=== PATIENT | male | born 1985 | race Caucasian/White ===

== ENCOUNTER 2018-11-29 23:29 | Inpatient (IN) | payer SELFPAY ==
[2018-11-29] MEDS ORDERED: LORazepam 2 MG/ML VIAL ONE (23:44)
[2018-11-29 23:53] LABS: Absolute Lymphocytes (CBC) 1.2 K/uL (0.7-4.9); Basophils % 0.8 % (0-1.3); Hematocrit 38.3 % (39.6-49.0); Lymphocytes % 28.7 % (15.3-44.8); MPV 10.9 fL (7.6-11.3); RBC Red Blood Cell Count 3.95 M/uL (4.33-5.43)
[2018-11-29 23:56] LABS: Protime INR 0.97
[2018-11-30 00:27] LABS: Alkaline Phosphatase 249 U/L (45-117); BUN Blood Urea Nitrogen 10 mg/dL (7-18); Bicarbonate 26 mmol/L (21-32); Bilirubin Direct 0.5 mg/dL (0-0.2); Glucose Level 105 mg/dL (74-106); Potassium 3.4 mmol/L (3.5-5.1); Protein, Total 8.2 g/dL (6.4-8.2); Sodium Level 137 mmol/L (136-145)
[2018-11-30 00:28] LABS: ALT/SGPT 700 U/L (12-78); AST/SGOT 878 U/L (15-37)
[2018-11-30] MEDS ORDERED: LORazepam 2 MG/ML VIAL ONE ×2 (00:37→04:08)
--- NOTE | 2018-11-30 01:23 | ER ---
Nurse's Notes [facility] Name: Bridger Garcia Age: 33 yrs Sex: Male : 1985 Arrival Date: 11/29/2018 Time: 23:30 Bed 2 Private MD: Diagnosis: Delirium due to known physiological condition;Alcohol abuse Presentation: 11/29 23:31 Presenting complaint: EMS states: PD on scene. pt girlfriend called stating pt was ak1 "having a seizure" pt A\\T\\OX3. pt admits to "using weed to sleep" to EMS. pt denies drug use to nurse during triage. EMS administered 100mL NS through 18g at the right forearm. Transition of care: patient was not received from another setting of care. Onset of symptoms was November 29, 2018. Risk Assessment: Do you want to hurt yourself or someone else? Patient reports no desire to harm self or others. Initial Sepsis Screen: Does the patient meet any 2 criteria? No. Patient's initial sepsis screen is negative. Does the patient have a suspected source of infection? No. Patient's initial sepsis screen is negative. Care prior to arrival: None. 23:31 Method Of Arrival: EMS: [facility] ak1 23:31 Acuity: BURTON 1 bb Triage Assessment: 23:33 General: Appears in no apparent distress. well groomed, Behavior is cooperative, ak1 anxious, restless. Pain: Complains of pain in jaw pain. EENT: No signs and/or symptoms were reported regarding the EENT system. Neuro: Level of Consciousness is awake, alert, obeys commands, Oriented to person, place, situation, Transit Survey Worker are equal bilaterally Moves all extremities. Full function Speech is normal, Facial symmetry appears normal, Pupils are dilated. Cardiovascular: Patient's skin is warm and dry. Rhythm is sinus tachycardia. Respiratory: Airway is patent Respiratory effort is even, unlabored. GI: No signs and/or symptoms were reported involving the gastrointestinal system. : No signs and/or symptoms were reported regarding the genitourinary system. Derm: No signs and/or symptoms reported regarding the dermatologic system. Musculoskeletal: No signs and/or symptoms reported regarding the musculoskeletal system. Historical: - Allergies: 23:33 No Known Allergies; ak1 - Home Meds: 23:33 None [Active]; ak1 - PMHx: 23:33 Hypertension; ak1 - PSHx: 23:33 None; ak1 - Immunization history:: Adult Immunizations unknown. - Social history:: Smoking status: Patient uses tobacco products, smokes two packs cigarettes per day. Patient/guardian denies using alcohol, street drugs. - Ebola Screening: : No symptoms or risks identified at this time. Screenin:38 Abuse screen: Denies threats or abuse. Denies injuries from another. Nutritional ak1 screening: No deficits noted. Tuberculosis screening: No symptoms or risk factors identified. Fall Risk IV access (20 points). Assessment: 23:37 Reassessment: Patient appears in no apparent distress at this time. No changes from ak1 previously documented assessment. Patient and/or family updated on plan of care and expected duration. Pain level reassessed. pt girlfriend at bedside. 23:38 Reassessment: EMS reported pt had been combative earlier in the night per the pt ak1 girlfriend. . 11/30 00:30 Reassessment: Patient appears in no apparent distress at this time. No changes from ak1 previously documented assessment. Patient and/or family updated on plan of care and expected duration. Pain level reassessed. 01:00 Reassessment: pt and girlfriend informed of pt need to be admitted and treated for ETOH ak1 withdrawal. 01:49 Reassessment: PT's girlfriend reports patient drinks half a liter of vodka per day jb4 sometime followed by beer. Girlfriend reports last drink was on Thursday. 02:05 Reassessment: Patient appears in no apparent distress at this time. Patient and/or jb4 family updated on plan of care and expected duration. Pain level reassessed. Pt is sitting up in bed with no s/s of pain or distress noted. respirations are even and unlabored, and symmetrical. 02:15 Reassessment: Pt admitted to ER Hold, see [facility] for further documentation. jb4 05:00 Reassessment: Dr. Wood and Dr. Vera at bedside to reassess patient. lp1 06:00 Reassessment: Returned from CT at this time. lp1 Vital Signs: 11/29 23:25 BP 174 / 109; Pulse 123; Resp 20; Temp 98.7(O); Pulse Ox 96% on R/A; Weight 79.38 kg ak1 (R); Height 6 ft. 0 in. (182.88 cm) (R); Pain 3/10; 23:37 BP 146 / 102; Pulse 110; Resp 18; Pulse Ox 95% on R/A; ak1 11/30 00:34 BP 144 / 101; Pulse 106; Resp 18; Pulse Ox 95% on R/A; ak1 01:15 BP 142 / 88; Pulse 108; Resp 22; Pulse Ox 95% on R/A; ak1 01:30 BP 136 / 93; Pulse 91; Pulse Ox 96% on R/A; ak1 02:00 BP 135 / 95; Pulse 96; Resp 24; Pulse Ox 98% on R/A; jb4 05:30 Pulse 108; Resp 20 A; Pulse Ox 98% on BVM; lp1 05:34 BP 129 / 82; Pulse 92; Resp 22; Pulse Ox 99% on BVM; lp1 05:40 BP 188 / 144; Pulse 135; Resp 18; Pulse Ox 100% on BVM; lp1 06:10 BP 145 / 101; Pulse 78; Resp 10; ak1 06:30 BP 141 / 96; Pulse 72; Resp 14; Temp 96.8(C); Pulse Ox 99% on ETT vent; ak1 07:00 BP 135 / 94; Pulse 68; Resp 14; Temp 95.9(C); Pulse Ox 95.9% on ETT vent; ak1 11/29 23:25 Body Mass Index 23.73 (79.38 kg, 182.88 cm) ak1 Gopi Coma Score: 11/29 23:33 Eye Response: spontaneous(4). Verbal Response: oriented(5). Motor Response: obeys ak1 commands(6). Total: 15. ED Course: 23:25 Arm band placed on Patient placed in an exam room, on a stretcher, on button cutter, ak1 on pulse oximetry, Patient notified of wait time. EKG completed in triage. Results shown to MD. 23:30 Patient arrived in ED. ak1 23:31 Inserted saline lock: 20 gauge in left forearm, using aseptic technique. Blood jb5 collected. 23:33 Triage completed. ak1 23:35 Seizure precautions initiated. cost recovery technician on. Pulse ox on. NIBP on. Door closed. ak1 23:35 Initial lab(s) drawn, by ED staff, sent to lab. EKG done, by ED staff. Maintain EMS IV. ak1 Dressing intact. Site clean \\T\\ dry. Gauge \\T\\ site: 18g right forearm. 23:41 Bebeto Vera MD is Attending Physician. gs 23:44 Acetaminophen Sent. jb5 23:44 Basic Metabolic Panel Sent. jb5 23:44 CBC with Diff Sent. jb5 23:44 ETOH Level Sent. jb5 23:44 Hepatic Function Sent. jb5 23:44 PT-INR Sent. jb5 23:44 Ptt, Activated Sent. jb5 23:44 Salicylate Sent. jb5 23:47 Cele Levi, MILAGROS is Primary Nurse. ak1 11/30 00:26 Notified ED physician of a critical lab result(s). ALT 700, AST 878. lp1 01:18 Tres Wood MD is Hospitalizing Provider. gs 01:37 No provider procedures requiring assistance completed. Patient admitted, IV remains in ak1 place. 05:30 20g IV to L FA and 18g IV to R FA pulled out while patient being combative. lp1 05:30 Inserted saline lock: 18 gauge in right upper arm, using aseptic technique. By Sonja Fortune RN. 05:37 Assisted provider with intubation using 8.0 mm ETT via oral route. ET tube secured at lp1 23cm at the teeth. Set up intubation tray. Intubated by Bebeto Vera MD Placement verified by CXR, CO2 detector w/ + color change, auscultating bilateral breath sounds. 05:45 NGT: inserted 18 Fr. other oral verified placement of air over stomach, verified return lp1 of gastric contents, Placement verified by X-ray, to intermittent suction. Returned gastric contents. 06:05 RT adjusted ET tube at this time per Dr. Vera; ET tube at 24 at the teeth. lp1 06:12 Vaca cath inserted, using sterile technique, 16 Fr., balloon inflated, to gravity lp1 drainage, other By Cele Levi RN Patient tolerated well. 06:25 Inserted saline lock: 18 gauge in left forearm, using aseptic technique. By Sonja Fortune RN. Administered Medications: 11/29 23:00 Drug: NS 0.9% 1000 ml {Note: EMS bolus continued .} Route: IV; Rate: 1 bolus; Site: ak1 right forearm; 23:48 Follow up: IV Status: Completed infusion; IV Intake: 1000ml ak1 23:47 Drug: Ativan 1 mg Route: IVP; Site: right forearm; ak1 23:48 Follow up: Response: No adverse reaction ak1 11/30 00:39 Drug: Ativan 2 mg Route: IVP; Site: right forearm; ak1 01:13 Follow up: Response: No adverse reaction ak1 05:04 Drug: Geodon 20 mg Route: IM; Site: left vastus lateralis; lp1 05:30 Follow up: Response: No adverse reaction; No change in condition lp1 05:30 Drug: Versed 4 mg Route: IVP; Site: right upper arm; lp1 05:40 Follow up: Response: No adverse reaction lp1 05:36 Drug: Etomidate 10 mg Route: IVP; Site: right upper arm; lp1 05:40 Follow up: Response: No adverse reaction lp1 05:36 Drug: Succinylcholine 120 mg Route: IVP; Site: right upper arm; lp1 05:40 Follow up: Response: Marked relief of symptoms lp1 05:40 Drug: Propofol 50 mg Route: IVP; Site: right upper arm; lp1 06:00 Follow up: Response: Marked relief of symptoms lp1 05:45 Drug: Propofol 5 mcg/kg/min Route: IV; Rate: calculated rate; Site: right upper arm; lp1 05:50 Follow up: Rate change 20 mcg/kg/min lp1 06:43 Follow up: Rate change 30 mcg/kg/min lp1 06:25 Drug: NS 0.9% 1000 ml Route: IV; Rate: 100 ml/hr; Site: right upper arm; lp1 06:25 Drug: Versed 2 mg Route: IVP; Site: left forearm; ak1 Intake: 11/29 23:48 IV: 1000ml; Total: 1000ml. ak1 Output: 11/30 06:15 Urine: 450ml (Vaca); Total: 450ml. lp1 Outcome: 01:22 Decision to Hospitalize by Provider. gs 01:37 Admitted to ER Hold. Please see [facility] for further documentation. ak1 01:37 Condition: improved 01:37 Instructed on the need for admit. 07:48 Patient left the ED. Signatures: Sonja Fortune RN RN bb Vandana Amador, MILAGROS RN ss Jalyn Copeland RN RN lp1 Cele Levi RN RN ak1 Cody Menchaca RN RN jb4 Chelsey Viramontes jb5 Bebeto Vera MD MD gs Corrections: (The following items were deleted from the chart) 01:15 00:30 Reassessment: pt and girlfriend informed of pt need to be admitted and treated ak1 for ETOH withdrawal. ak1 06:10 11/29 23:31 Acuity: BURTON 3 ak1 bb 11/30 06:47 05:00 Reassessment: Dr. Wood at bedside to reassess patient lp1 lp1
--- NOTE | 2018-11-30 01:23 | EDPHYS ---
Physician Documentation [facility] Name: Bridger Garcia Age: 33 yrs Sex: Male : 1985 Arrival Date: 11/29/2018 Time: 23:30 Bed 2 Private MD: ED Physician Bebeto Vera HPI: 11/30 01:41 This 33 yrs old Male presents to ER via EMS with complaints of Probable gs Seizure. 01:41 The patient presents after having a single isolated seizure. Character of seizure(s): gs Loss of consciousness: the patient did not lose consciousness, Incontinence: none, Apnea: the patient did not experience apnea. Seizure onset: just prior to arrival. Context: the seizure(s) was witnessed, by a friend. Seizure Hx: the patient has no previous seizure history, Cause: alcohol abuse history. Associated injury: The patient did not suffer any apparent associated injury. The patient has not experienced similar symptoms in the past. last drink last Thursday, pt is heavy drinker. Historical: - Allergies: 11/29 23:33 No Known Allergies; ak1 - Home Meds: 23:33 None [Active]; ak1 - PMHx: 23:33 Hypertension; ak1 - PSHx: 23:33 None; ak1 - Immunization history:: Adult Immunizations unknown. - Social history:: Smoking status: Patient uses tobacco products, smokes two packs cigarettes per day. Patient/guardian denies using alcohol, street drugs. - Ebola Screening: : No symptoms or risks identified at this time. ROS: 11/30 01:41 All other systems are negative. gs Exam: 01:41 Head/Face: Normocephalic, atraumatic. Eyes: Pupils equal round and reactive to light, gs extra-ocular motions intact. Lids and lashes normal. Conjunctiva and sclera are non-icteric and not injected. Cornea within normal limits. Periorbital areas with no swelling, redness, or edema. ENT: Nares patent. No nasal discharge, no septal abnormalities noted. Tympanic membranes are normal and external auditory canals are clear. Oropharynx with no redness, swelling, or masses, exudates, or evidence of obstruction, uvula midline. Mucous membranes moist. Neck: Trachea midline, no thyromegaly or masses palpated, and no cervical lymphadenopathy. Supple, full range of motion without nuchal rigidity, or vertebral point tenderness. No Meningismus. Chest/axilla: Normal chest wall appearance and motion. Nontender with no deformity. No lesions are appreciated. 01:41 Respiratory: Lungs have equal breath sounds bilaterally, clear to auscultation and percussion. No rales, rhonchi or wheezes noted. No increased work of breathing, no retractions or nasal flaring. Abdomen/GI: Soft, non-tender, with normal bowel sounds. No distension or tympany. No guarding or rebound. No evidence of tenderness throughout. Back: No spinal tenderness. No costovertebral tenderness. Full range of motion. Skin: Warm, dry with normal turgor. Normal color with no rashes, no lesions, and no evidence of cellulitis. MS/ Extremity: Pulses equal, no cyanosis. Neurovascular intact. Full, normal range of motion. Neuro: Awake and alert, GCS 15, oriented to person, place, time, and situation. Cranial nerves II-XII grossly intact. Motor strength 5/5 in all extremities. Sensory grossly intact. Cerebellar exam normal. Normal gait. 01:41 Constitutional: The patient appears alert, awake. 01:41 Cardiovascular: Rate: tachycardic, Rhythm: regular, Pulses: no pulse deficits are appreciated. 01:41 ECG was reviewed by the Attending Physician. Vital Signs: 11/29 23:25 BP 174 / 109; Pulse 123; Resp 20; Temp 98.7(O); Pulse Ox 96% on R/A; Weight 79.38 kg ak1 (R); Height 6 ft. 0 in. (182.88 cm) (R); Pain 3/10; 23:37 BP 146 / 102; Pulse 110; Resp 18; Pulse Ox 95% on R/A; ak1 11/30 00:34 BP 144 / 101; Pulse 106; Resp 18; Pulse Ox 95% on R/A; ak1 01:15 BP 142 / 88; Pulse 108; Resp 22; Pulse Ox 95% on R/A; ak1 01:30 BP 136 / 93; Pulse 91; Pulse Ox 96% on R/A; ak1 02:00 BP 135 / 95; Pulse 96; Resp 24; Pulse Ox 98% on R/A; jb4 05:30 Pulse 108; Resp 20 A; Pulse Ox 98% on BVM; lp1 05:34 BP 129 / 82; Pulse 92; Resp 22; Pulse Ox 99% on BVM; lp1 05:40 BP 188 / 144; Pulse 135; Resp 18; Pulse Ox 100% on BVM; lp1 06:10 BP 145 / 101; Pulse 78; Resp 10; ak1 06:30 BP 141 / 96; Pulse 72; Resp 14; Temp 96.8(C); Pulse Ox 99% on ETT vent; ak1 07:00 BP 135 / 94; Pulse 68; Resp 14; Temp 95.9(C); Pulse Ox 95.9% on ETT vent; ak1 11/29 23:25 Body Mass Index 23.73 (79.38 kg, 182.88 cm) ak1 Gopi Coma Score: 11/29 23:33 Eye Response: spontaneous(4). Verbal Response: oriented(5). Motor Response: obeys ak1 commands(6). Total: 15. Procedures: 11/30 05:41 Intubation: Ventilated with 100% NRB prior to procedure. O2 saturation prior to gs procedure was 100 %. Intubated orally using # 4 Cat blade with 8.0 mm ETT. was successful on first attempt. Ventilated with Ambu bag. Tube secured with ETT hussein Placement verified by CXR, CO2 detector with (+) color change, auscultating bilateral breath sounds, O2 saturation after procedure was 100 %. Patient tolerated well, pt decompensated very agitated danger to self others unable to maintain airway with sedation thus required ett. MDM: 00:29 Patient medically screened. 01:41 Differential diagnosis: cardiac arrhythmia, seizure, dt, etoh withdrawl. Data reviewed: vital signs, nurses notes. Counseling: I had a detailed discussion with the patient and/or guardian regarding: the historical points, exam findings, and any diagnostic results supporting the discharge/admit diagnosis, the need for further work-up and treatment in the hospital. Response to treatment: the patient's symptoms have markedly improved after treatment, the patient's condition has returned to base line. 11/29 23:36 Order name: Acetaminophen; Complete Time: 00:30 ak1 11/29 23:36 Order name: Basic Metabolic Panel; Complete Time: 00:30 ak1 11/29 23:36 Order name: CBC with Diff; Complete Time: 00:30 ak1 11/29 23:36 Order name: ETOH Level; Complete Time: 00:30 ak1 11/29 23:36 Order name: Hepatic Function; Complete Time: 00:30 ak1 11/29 23:36 Order name: PT-INR; Complete Time: 00:30 ak1 11/29 23:36 Order name: Ptt, Activated; Complete Time: 00:30 ak1 11/29 23:36 Order name: Salicylate; Complete Time: 00:30 ak1 11/29 23:36 Order name: Urine Drug Screen; Complete Time: 01:52 ak1 11/30 00:31 Order name: Lipase; Complete Time: 01:11 gs 11/30 00:33 Order name: Hepatitis Panel 11/30 01:13 Order name: Urine Dipstick--Ancillary (enter results); Complete Time: 07:28 [facility] 11/30 02:12 Order name: CBC with Automated Diff EDMS 11/30 02:12 Order name: CBC with Automated Diff EDMS 11/30 02:12 Order name: Comprehensive Metabolic Panel EDMS 11/30 02:12 Order name: Comprehensive Metabolic Panel EDMS 11/30 02:12 Order name: Protime (+INR) EDMS 11/30 02:12 Order name: Protime (+INR) EDMS 11/30 02:12 Order name: PTT, Activated Partial Thromb EDMS 11/30 02:12 Order name: PTT, Activated Partial Thromb EDMS 11/30 02:14 Order name: CBC with Automated Diff EDMS 11/30 02:14 Order name: Comprehensive Metabolic Panel EDMS 11/30 02:14 Order name: Lipase EDMS 11/30 02:14 Order name: Protime (+INR) EDMS 11/30 02:14 Order name: PTT, Activated Partial Thromb EDMS 11/30 05:41 Order name: Chest Single View XRAY 11/30 05:41 Order name: CT Head Brain wo Cont 11/30 06:32 Order name: RAD; Complete Time: 07:28 EDMS 11/29 23:36 Order name: EKG; Complete Time: 23:37 ak1 11/29 23:36 Order name: EKG - Nurse/Tech; Complete Time: 23:36 ak1 11/29 23:36 Order name: IV Saline Lock; Complete Time: 23:36 ar1 11/29 23:36 Order name: Labs collected and sent; Complete Time: 23:44 ak1 11/29 23:36 Order name: Urine Dipstick-Ancillary (obtain specimen); Complete Time: 01:13 ak1 11/30 02:12 Order name: CONS Pharmacy Consult EDMS 11/30 02:12 Order name: Regular EDMS EC:41 Rate is 112 beats/min. Rhythm is regular. [place] interval is normal. QRS interval is gs prolonged. T waves are Normal. No ST changes noted. Clinical impression: Abnormal EKG without significant change. Interpreted by me. Administered Medications: 11/29 23:00 Drug: NS 0.9% 1000 ml {Note: EMS bolus continued .} Route: IV; Rate: 1 bolus; Site: [facility] right forearm; 23:48 Follow up: IV Status: Completed infusion; IV Intake: 1000ml ak1 23:47 Drug: Ativan 1 mg Route: IVP; Site: right forearm; ak1 23:48 Follow up: Response: No adverse reaction ak1 11/30 00:39 Drug: Ativan 2 mg Route: IVP; Site: right forearm; ak1 01:13 Follow up: Response: No adverse reaction ak1 05:04 Drug: Geodon 20 mg Route: IM; Site: left vastus lateralis; lp1 05:30 Follow up: Response: No adverse reaction; No change in condition lp1 05:30 Drug: Versed 4 mg Route: IVP; Site: right upper arm; lp1 05:40 Follow up: Response: No adverse reaction lp1 05:36 Drug: Etomidate 10 mg Route: IVP; Site: right upper arm; lp1 05:40 Follow up: Response: No adverse reaction lp1 05:36 Drug: Succinylcholine 120 mg Route: IVP; Site: right upper arm; lp1 05:40 Follow up: Response: Marked relief of symptoms lp1 05:40 Drug: Propofol 50 mg Route: IVP; Site: right upper arm; lp1 06:00 Follow up: Response: Marked relief of symptoms lp1 05:45 Drug: Propofol 5 mcg/kg/min Route: IV; Rate: calculated rate; Site: right upper arm; lp1 05:50 Follow up: Rate change 20 mcg/kg/min lp1 06:43 Follow up: Rate change 30 mcg/kg/min lp1 06:25 Drug: NS 0.9% 1000 ml Route: IV; Rate: 100 ml/hr; Site: right upper arm; lp1 06:25 Drug: Versed 2 mg Route: IVP; Site: left forearm; ak1 Disposition: 11/30/18 01:22 Hospitalization ordered by Tres Wood for Inpatient Admission. Preliminary diagnosis are Delirium due to known physiological condition, Alcohol abuse. - Bed requested for Intensive Care Unit. - Status is Inpatient Admission. ss - Condition is Stable. - Problem is new. - Symptoms have improved. UTI on Admission? No Signatures: Dispatcher [employer] EDMS Delmar Randolph MD MD cha Smirch, Shelby, RN RN ss Jalyn Copeland RN RN lp1 Cele Levi RN RN ak1 Effie Posadas RN RN cg Bebeto Vera MD MD gs Corrections: (The following items were deleted from the chart) 05:49 01:22 Hospitalization Ordered by Tres Wood MD for Inpatient Admission. Preliminary cg diagnosis is Delirium due to known physiological condition; Alcohol abuse. Bed requested for Telemetry/MedSurg (observation). Status is Inpatient Admission. Condition is Stable. Problem is new. Symptoms have improved. UTI on Admission? No. 07:48 05:49 11/30/2018 01:22 Hospitalization Ordered by Tres Wood MD for Inpatient ss Admission. Preliminary diagnosis is Delirium due to known physiological condition; Alcohol abuse. Bed requested for Intensive Care Unit. Status is Inpatient Admission. Condition is Stable. Problem is new. Symptoms have improved. UTI on Admission? No.
[2018-11-30 01:32] LABS: Barbiturates NEGATIVE (NEGATIVE); Benzodiazepines NEGATIVE (NEGATIVE); Cocaine NEGATIVE (NEGATIVE); METHAMPHETAM NEGATIVE (NEGATIVE); Methadone NEGATIVE (NEGATIVE); Opiates NEGATIVE (NEGATIVE); Phencyclidine NEGATIVE (NEGATIVE); THC Cannibis NEGATIVE (NEGATIVE)
[2018-11-30] MEDS ORDERED: MORPHINE 4 MG/ML SYR IV PRN (02:05)
[2018-11-30] MEDS ORDERED: chlordiazePOXIDE HCl 5 MG CAP PO PRN (02:05)
[2018-11-30] MEDS ORDERED: ONDANSETRON 4 MG/2 ML VIAL IV PRN (02:05)
[2018-11-30] MEDS ORDERED: levETIRAcetam 500 MG in NA CHLORIDE 0.9% 100 ML IV SCH (02:15)
[2018-11-30] MEDS ORDERED: NA CHLORIDE 0.9% 100 ML IV ONE (02:19)
[2018-11-30] MEDS ORDERED: LEVETIRACETAM 500 MG/5 ML VIAL IV ONE ×2 (02:19→20:22)
[2018-11-30 02:41] LABS: Urine Blood NEGATIVE (NEG); Urine Glucose NEGATIVE (NEG); Urine Protein 1+ (NEG)
[2018-11-30] MEDS: NA CHLORIDE 0.9% 1,000 ML IV SCH ×3 (03:00→22:20)
[2018-11-30] MEDS ORDERED: NA CHLORIDE 0.9% 1,000 ML ONE ×2 (03:01→05:23)
[2018-11-30] MEDS ORDERED: HYDROMORPHONE HCL 0.5 MG/0.5 ML INJ IV ONE ×2 (03:07→04:00)
[2018-11-30] MEDS ORDERED: HYDROMORPHONE HCL 0.5 MG/0.5 ML INJ ONE ×2 (03:20→04:03)
[2018-11-30] MEDS: LORazepam 2 MG/ML VIAL IV PRN ×4 (04:13→23:00)
[2018-11-30] MEDS ORDERED: HYDROMORPHONE HCL 1 MG/ML INJ ONE (04:19)
[2018-11-30] MEDS ORDERED: HYDROMORPHONE HCL 1 MG/ML INJ IV ONE (04:20)
[2018-11-30] MEDS ORDERED: LORazepam 2 MG/ML VIAL IV ONE (04:34)
[2018-11-30] MEDS ORDERED: ZIPRASIDONE MESYLA 20 MG/VIAL IM ONE (05:09)
[2018-11-30] MEDS ORDERED: WATER FOR INJ,STERILE 10 ML ONE (05:10)
[2018-11-30] MEDS ORDERED: METOPROLOL TARTRATE 5 MG/5 ML INJ IV ONE (05:10)
[2018-11-30] MEDS ORDERED: MIDAZOLAM HCL 2 MG/2 ML INJ ONE ×2 (05:23→05:43)
[2018-11-30] MEDS ORDERED: RSI MEDICATION KIT IV ONE (05:23)
[2018-11-30] MEDS ORDERED: PROPOFOL 1,000 MG/100 ML VIAL IV ONE ×2 (05:23→11:00)
[2018-11-30] MEDS ORDERED: NA CHLORIDE 0.9% 50 ML IV ONE (05:44)
--- NOTE | 2018-11-30 06:11 | EKG ---
Test Date: 2018-11-29 Test Time: 23:26:43 Reach Lift Truck Driver: MICHAEL MEASUREMENT RESULTS: Intervals: Rate: 112 VT: 164 QRSD: 102 QT: 342 QTc: 466 Regan: P: 48 VT: 164 QRS: 69 T: 23 INTERPRETIVE STATEMENTS: Sinus tachycardia Incomplete right bundle branch block Septal infarct, age undetermined Abnormal ECG No previous ECG available for comparison Electronically Signed On 11-30-18 06:10:47 CDT by Demar Santos
--- NOTE | 2018-11-30 06:31 | RAD REPORT ---
EXAM DESCRIPTION: RAD - Chest Single View - 11/30/2018 5:56 am CLINICAL HISTORY: POST ETT Chest pain. COMPARISON: <Comparisons> FINDINGS: Portable technique limits examination quality. The lungs are grossly clear. The heart is normal in size. ET tube tip is above the porfirio.Enteric tub e descends in the stomach. IMPRESSION: No acute intrathoracic process suspected.
[2018-11-30] MEDS ORDERED: MIDAZOLAM HCL IV PRN (07:12)
[2018-11-30] MEDS ORDERED: NA CHLORIDE 0.9% IV PRN (07:12)
[2018-11-30] MEDS ORDERED: INFLUENZA VACCINE (for 3y+) 0.5 ML DOSE IMVAC ONE (08:00)
[2018-11-30 08:22] LABS: Absolute Lymphocytes (CBC) 0.9 K/uL (0.7-4.9); Basophils % 0.6 % (0-1.3); Lymphocytes % 27.7 % (15.3-44.8); MPV 9.8 fL (7.6-11.3); RBC Red Blood Cell Count 4.04 M/uL (4.33-5.43)
[2018-11-30 08:37] LABS: Protime INR 0.99
--- NOTE | 2018-11-30 08:51 | P.HP ---
Certification for Inpatient Patient admitted to: Inpatient With expected LOS: >2 Midnights Patient will require the following post-hospital care: Home Health Services Practitioner: I am a practitioner with admitting privileges, knowledge of patient current condition, hospital course, and medical plan of care. Services: Services provided to patient in accordance with Admission requirements found in Title 42 Section 412.3 of the Code of Federal Regulations Patient History Date of Service: 11/30/18 Reason for admission: delirium tremens History of Present Illness: Patient is a 33-year-old gentleman who comes into the hospital going through [facility]. Patient drinks about a half of 1 L of vodka every day. Patient had gone out of town to [place]. Over the last couple of days he has had no alcohol. He had been feeling poorly during the trip and had a few episodes of nausea and vomiting as well. Patient was seen in the ER and admitted to the hospital for further workup. Patient started becoming more obtunded in the ER. Decision was made to intubate and sedate as patient has high risk of aspiration and fall. patient became very combative while in the emergency room. After giving IV Versed patient finally relaxed and had to be intubated. Patient had a CT of the head which was negative. Patient will be admitted for further evaluation. Allergies No Known Allergies Allergy (Unverified 11/30/18 01:31) Home Medications: NK [No Home Meds] 11/30/18 - Past Medical/Surgical History Diabetic: No -: Hypertension Past Surgical History: Patient denies surgical history - Family History Father Family History: Reviewed- Non-Contributory - Social History Smoking Status: Current every day smoker Alcohol use: Yes CD- Drugs: No Caffeine use: Yes Place of Residence: Home Review of Systems 10-point ROS is otherwise unremarkable Physical Examination - Vital Signs Temperature: 95.9 F Blood Pressure: 135/94 Pulse: 68 Respirations: 14 Pulse Ox (%): 95 - Physical Exam General: Confused, Delirious, Unresponsive HEENT: Atraumatic, PERRLA, Mucous membr. moist/pink, EOMI, Sclerae nonicteric Neck: Supple, 2+ carotid pulse no bruit, No LAD, Without JVD or thyroid abnormality Respiratory: Clear to auscultation bilaterally, Normal air movement Cardiovascular: Regular rate/rhythm, Normal S1 S2, No murmurs Gastrointestinal: Normal bowel sounds, Soft and benign, Non-distended, Tenderness Musculoskeletal: No clubbing, No swelling, No tenderness Integumentary: No rashes Neurological: Normal gait, Normal speech, Normal strength at 5/5 x4 extr, Normal tone, Normal affect Lymphatics: No axilla or inguinal lymphadenopathy Urinary: Dialysis catheter External genitalia: No edema Rectal: Normal - Studies Laboratory Data (last 24 hrs) 11/30/18 00:00: Lipase 407 H 11/29/18 23:30: PT 11.5, INR 0.97, APTT 31.3 11/29/18 23:30: WBC 4.3, Hgb 14.1, Hct 38.3 L, Plt Count 308 11/29/18 23:30: Sodium 137, Potassium 3.4 L, BUN 10, Creatinine 0.94, Glucose 105, Total Bilirubin 1.0, AST 878 H*, ALT 700 H*, Alkaline Phosphatase 249 H Assessment & Plan - Problems (Diagnosis) (1) Respiratory failure Current Visit: Yes Status: Acute (2) Delirium tremens Current Visit: Yes Status: Acute (3) AMS (altered mental status) Current Visit: Yes Status: Acute - Plan 1. Vent management/ IV hydration 2. Antibiotic 3. IV sedation 4. pain control 5. GI DVT prophylaxis 6. Continue monitoring labs closely while intubated 7. Monitor chest x-ray daily Discharge Plan: Home Plan to discharge in: 24 Hours - Advance Directives Does patient have a Living Will: No Does patient have a Durable POA for Healthcare: No - Code Status/Comfort Care Code Status Assessed: Yes Code Status: Full Code Critical Care: No Time Spent Managing PTS Care (In Minutes): 110
[2018-11-30 09:08] LABS: ALT/SGPT 673 U/L (12-78); Albumin 3.7 g/dL (3.4-5.0); Alkaline Phosphatase 211 U/L (45-117); BUN Blood Urea Nitrogen 8 mg/dL (7-18); Bicarbonate 28 mmol/L (21-32); Bilirubin Total 1.2 mg/dL (0.2-1.0); Glucose Level 86 mg/dL (74-106); Lipase 133 U/L (73-393); Protein, Total 7.4 g/dL (6.4-8.2); Sodium Level 142 mmol/L (136-145)
[2018-11-30 09:14] LABS: AST/SGOT 758 U/L (15-37)
[2018-11-30] MEDS: levETIRAcetam 500 MG in NA CHLORIDE 0.9% 100 ML IV SCH ×2 (10:31→20:24)
[2018-11-30] MEDS: FOLIC ACID 1 MG, MULTIVITAMINS INJ 10 ML, THIAMINE HCL 100 MG in NA CHLORIDE 0.9% 1,000 ML IV SCH (10:31)
[2018-11-30] MEDS: ENOXAPARIN 40 MG/0.4 ML SQ SCH (10:32)
[2018-11-30] MEDS: chlordiazePOXIDE HCl 5 MG CAP PO SCH ×2 (10:32→14:00)
[2018-11-30 11:28] LABS: Absolute Lymphocytes (CBC) 1.3 K/uL (0.7-4.9); Basophils % 0.9 % (0-1.3); Hematocrit 39.7 % (39.6-49.0); Lymphocytes % 35.6 % (15.3-44.8); MPV 9.9 fL (7.6-11.3); RBC Red Blood Cell Count 4.01 M/uL (4.33-5.43)
[2018-11-30 12:19] LABS: ALT/SGPT 679 U/L (12-78); AST/SGOT 722 U/L (15-37); Albumin 3.6 g/dL (3.4-5.0); Alkaline Phosphatase 212 U/L (45-117); BUN Blood Urea Nitrogen 8 mg/dL (7-18); Bicarbonate 27 mmol/L (21-32); Bilirubin Total 1.3 mg/dL (0.2-1.0); Folic Acid, (Folate) > 20.0 ng/mL (3.1-17.5); Glucose Level 83 mg/dL (74-106); Lipase 129 U/L (73-393); Phosphorus 3.8 mg/dL (2.5-4.9); Potassium 3.3 mmol/L (3.5-5.1); Protein, Total 7.2 g/dL (6.4-8.2); Sodium Level 144 mmol/L (136-145)
[2018-11-30 13:00] LABS: Blood Morphology Comment NOT SEEN (NOT SEEN); Platelet Estimate ADEQ; Platelets, Giant FEW
--- NOTE | 2018-11-30 14:14 | RAD REPORT ---
EXAM DESCRIPTION: CT Head Without Intravenous Contrast CLINICAL HISTORY: The patient is 33 years old and is Male; CONFUSED TECHNIQUE: Axial computed tomography images of the head/brain without intravenous contrast. Sagitt al and coronal reformatted images were created and reviewed. This CT exam was performed using one o r more of the following dose reduction techniques: automated exposure control, adjustment of the mA and/or kV according to patient size, and/or use of iterative reconstruction technique. COMPARISON: No relevant prior studies available. FINDINGS: BRAIN: Unremarkable. The vanegas-white matter differentiation is preserved . No hemorrhag e. No significant white matter disease. No edema. No extra-axial fluid collections. VENTRICLES: Unremarkable. No ventriculomegaly. BONES/JOINTS: No acute fracture. SOFT TISSUES: Unremarkable. SINUSES: Unremarkable as visualized. No acute sinusitis. MASTOID AIR CELLS: Unremarkable as visualized. No mastoid effusion. ORBITS: Unremarkable as visualized. IMPRESSION: No acute intracranial findings. Electronically signed by: Lisa Duong MD 11/30/2018 6:26 AM CDT Due to temporary technical issues with the PACS/Fluency reporting system, reports are being signed by the in house radiologist as a courtesy to ensure prompt reporting. The interpreting radiologist is f ully responsible for the content of the report.
[2018-11-30] MEDS ORDERED: FENTANYL CITR 100 MCG/2 ML IV PRN (15:11)
[2018-11-30] MEDS ORDERED: MIDAZOLAM HCL 2 MG/2 ML INJ IV PRN (15:11)
[2018-11-30] MEDS: PROPOFOL 1,000 MG/100 ML VIAL IV PRN ×3 (15:14→23:10)
[2018-11-30] MEDS ORDERED: POTASSIUM 25 MEQ EFFERV TAB FT ONE (16:00)
[2018-11-30] MEDS: chlordiazePOXIDE HCl 25 MG CAP FT SCH ×2 (16:12→20:20)
[2018-11-30] MEDS: HALOPERIDOL LACT 5 MG/ML INJ IV PRN ×2 (16:13→23:19)
[2018-11-30] MEDS: MIDAZOLAM HCL 100 MG in NA CHLORIDE 0.9% 80 ML IV PRN (20:13)
[2018-11-30] MEDS ORDERED: NA CHLORIDE 0.9% 100 ML ONE (20:22)
[2018-12-01] MEDS: LORazepam 2 MG/ML VIAL IV PRN ×6 (03:04→21:40)
[2018-12-01] MEDS: PROPOFOL 1,000 MG/100 ML VIAL IV PRN ×5 (03:04→22:49)
[2018-12-01 05:57] LABS: Absolute Lymphocytes (CBC) 1.1 K/uL (0.7-4.9); Hematocrit 35.8 % (39.6-49.0); Lymphocytes % 24.5 % (15.3-44.8); MPV 9.8 fL (7.6-11.3); RBC Red Blood Cell Count 3.61 M/uL (4.33-5.43)
[2018-12-01 06:02] LABS: Albumin 3.2 g/dL (3.4-5.0); Alkaline Phosphatase 182 U/L (45-117); BUN Blood Urea Nitrogen 10 mg/dL (7-18); Bicarbonate 26 mmol/L (21-32); Bilirubin Total 1.4 mg/dL (0.2-1.0); Glucose Level 75 mg/dL (74-106); Magnesium 1.9 mg/dL (1.8-2.4); Phosphorus 3.5 mg/dL (2.5-4.9); Potassium 3.2 mmol/L (3.5-5.1); Protein, Total 6.6 g/dL (6.4-8.2); Sodium Level 142 mmol/L (136-145)
[2018-12-01 06:06] LABS: ALT/SGPT 634 U/L (12-78); AST/SGOT 543 U/L (15-37)
[2018-12-01] MEDS ORDERED: POTASSIUM 25 MEQ EFFERV TAB FT ONE (06:10)
--- NOTE | 2018-12-01 06:44 | RAD REPORT ---
EXAM DESCRIPTION: RAD - Chest Single View - 12/01/2018 6:18 am CLINICAL HISTORY: r/o aspiration Chest pain. COMPARISON: Chest Single View dated 11/30/2018 FINDINGS: Portable technique limits examination quality. The lungs are grossly clear. The heart is normal in size. ET tube tip is above the porfirio. Enteric tu be descends with its tip in the stomach.
[2018-12-01 07:14] LABS: Protime INR 0.98
[2018-12-01] MEDS: NA CHLORIDE 0.9% 1,000 ML IV SCH ×2 (09:00→20:10)
[2018-12-01] MEDS: levETIRAcetam 500 MG in NA CHLORIDE 0.9% 100 ML IV SCH ×2 (09:01→20:09)
[2018-12-01] MEDS: FOLIC ACID 1 MG, MULTIVITAMINS INJ 10 ML, THIAMINE HCL 100 MG in NA CHLORIDE 0.9% 1,000 ML IV SCH (09:02)
[2018-12-01] MEDS: chlordiazePOXIDE HCl 25 MG CAP FT SCH ×3 (09:06→20:10)
[2018-12-01] MEDS: ENOXAPARIN 40 MG/0.4 ML SQ SCH (09:07)
[2018-12-01] MEDS: FENTANYL CITR 100 MCG/2 ML IV PRN ×4 (09:20→21:50)
[2018-12-01] MEDS: MIDAZOLAM HCL 100 MG in NA CHLORIDE 0.9% 80 ML IV PRN ×2 (12:39→20:10)
--- NOTE | 2018-12-01 15:29 | P.PN ---
Subjective Date of Service: 12/01/18 Chief Complaint: delirium tremens Patient seen and examined at bedside. No family at bedside. Chart reviewed and case discussed with nursing staff. Patient currently continues to be intubated and sedated. Unable to be weaned off sedation at this time due to agitation. Review of Systems 10-point ROS is otherwise unremarkable Physical Examination - Vital Signs Temperature: 98.6 F Blood Pressure: 125/79 Pulse: 66 Respirations: 14 Pulse Ox (%): 99 - Physical Exam General: Other (Intubated and sedated; seems to get agitated even with sedation) HEENT: Atraumatic, PERRLA, EOMI Neck: Supple, JVD not distended Respiratory: Other (Intubated and sedated) Gastrointestinal: Normal bowel sounds, No tenderness Musculoskeletal: No tenderness Assessment And Plan - Plan 1. Continue Vent management/ IV hydration 2. Continue IV Antibiotic 3. Continue IV sedation -patient gets agitated even with trial of weaning down sedation at this time. 4. pain control 5. GI DVT prophylaxis 6. Continue monitoring labs closely while intubated 7. Monitor chest x-ray daily
[2018-12-01] MEDS ORDERED: ETOMIDATE 20 MG/10 ML VIAL IV ONE (18:47)
[2018-12-01] MEDS ORDERED: SUCCINYLCHOLINE 20 MG/ML (10 ML) IV ONE (18:47)
[2018-12-01] MEDS ORDERED: POTASSIUM 25 MEQ EFFERV TAB PO ONE (19:24)
[2018-12-02] MEDS: HALOPERIDOL LACT 5 MG/ML INJ IV PRN (01:04)
[2018-12-02] MEDS: LORazepam 2 MG/ML VIAL IV PRN ×4 (01:04→22:39)
[2018-12-02] MEDS ORDERED: HYDROMORPHONE HCL 1 MG/ML INJ ONE (01:56)
[2018-12-02] MEDS: FENTANYL CITR 100 MCG/2 ML IV PRN (01:58)
[2018-12-02] MEDS ORDERED: HYDROMORPHONE HCL 1 MG/ML INJ IV ONE (02:36)
[2018-12-02] MEDS: NA CHLORIDE 0.9% 1,000 ML IV SCH ×2 (05:00→15:00)
[2018-12-02] MEDS: chlordiazePOXIDE HCl 25 MG CAP FT SCH ×4 (05:46→22:39)
[2018-12-02 05:49] LABS: BUN Blood Urea Nitrogen 5 mg/dL (7-18); Bicarbonate 25 mmol/L (21-32); Glucose Level 69 mg/dL (74-106); Magnesium 1.9 mg/dL (1.8-2.4); Phosphorus 3.1 mg/dL (2.5-4.9); Potassium 3.3 mmol/L (3.5-5.1); Sodium Level 139 mmol/L (136-145)
--- NOTE | 2018-12-02 10:22 | RAD REPORT ---
EXAM DESCRIPTION: RAD - Hand Right 3 View - 12/02/2018 10:10 am CLINICAL HISTORY: Right hand pain, soft tissue swelling, unknown injury COMPARISON: None. FINDINGS: No fracture is identified. There is no dislocation or periosteal reaction noted. Prominen t soft tissue over the dorsum of the hand. No air, foreign body or calcification in the soft tissues. IMPRESSION: Right hand soft tissue swelling without air, foreign body or abnormal calcification. No acute bone or joint finding.
[2018-12-02] MEDS: levETIRAcetam 500 MG in NA CHLORIDE 0.9% 100 ML IV SCH ×2 (10:50→21:52)
[2018-12-02] MEDS: FOLIC ACID 1 MG, MULTIVITAMINS INJ 10 ML, THIAMINE HCL 100 MG in NA CHLORIDE 0.9% 1,000 ML IV SCH (10:50)
[2018-12-02] MEDS: ENOXAPARIN 40 MG/0.4 ML SQ SCH (10:51)
[2018-12-02] MEDS ORDERED: IBUPROFEN 400 MG TAB PO PRN (13:39)
[2018-12-02] MEDS ORDERED: LORazepam 2 MG/ML VIAL IV ONE (16:00)
[2018-12-02] MEDS: NICOTINE 21 MG/PAT TD SCH (16:55)
--- NOTE | 2018-12-02 17:36 | P.PN ---
Subjective Date of Service: 12/02/18 Chief Complaint: delirium tremens Subjective: Improving Patient seen and examined at bedside. No family at bedside. Chart reviewed and case discussed with nursing staff. Patient successfully extubated today Doing well post extubation, tolerating oral diet Review of Systems 10-point ROS is otherwise unremarkable Physical Examination - Vital Signs Temperature: 100.8 F Blood Pressure: 138/87 Pulse: 109 Respirations: 22 Pulse Ox (%): 96 - Physical Exam General: Alert, In no apparent distress HEENT: Atraumatic, PERRLA, EOMI Neck: Supple, JVD not distended Respiratory: Clear to auscultation bilaterally, Normal air movement Cardiovascular: Regular rate/rhythm, Normal S1 S2 Gastrointestinal: Normal bowel sounds, No tenderness Musculoskeletal: No tenderness Integumentary: No rashes Neurological: Normal speech, Normal tone, Normal affect Lymphatics: No axilla or inguinal lymphadenopathy Assessment And Plan - Plan 1. Extubated, continue to monitor vital signs in the ICU. 2. Continue IV Antibiotic 3. Continue alcohol withdrawal precautions/medication 4. pain control 5. GI DVT prophylaxis Disposition: Continue to monitor in ICU overnight, stable, can transfer to the floor. Continue to monitor for DTs and alcohol withdrawal symptoms.
[2018-12-02] MEDS ORDERED: POTASSIUM 25 MEQ EFFERV TAB PO ONE (18:00)
[2018-12-03 02:47] LABS: HBsAG Nonreactive (Nonreactive)
[2018-12-03 05:21] LABS: Absolute Lymphocytes (CBC) 1.4 K/uL (0.7-4.9); Basophils % 0.5 % (0-1.3); Hematocrit 39.5 % (39.6-49.0); Lymphocytes % 22.1 % (15.3-44.8)
[2018-12-03 05:44] VITALS: BMI 22.6
[2018-12-03 05:44] LABS: Albumin 3.4 g/dL (3.4-5.0); Alkaline Phosphatase 282 U/L (45-117); BUN Blood Urea Nitrogen 7 mg/dL (7-18); Bicarbonate 28 mmol/L (21-32); Bilirubin Total 1.7 mg/dL (0.2-1.0); Glucose Level 121 mg/dL (74-106); Potassium 3.6 mmol/L (3.5-5.1); Protein, Total 7.6 g/dL (6.4-8.2); Sodium Level 140 mmol/L (136-145)
[2018-12-03 05:46] LABS: ALT/SGPT 525 U/L (12-78); AST/SGOT 347 U/L (15-37)
[2018-12-03] MEDS: chlordiazePOXIDE HCl 25 MG CAP FT SCH ×2 (06:13→11:02)
[2018-12-03] MEDS: NICOTINE 21 MG/PAT TD SCH (08:33)
[2018-12-03] MEDS: ENOXAPARIN 40 MG/0.4 ML SQ SCH (08:34)
[2018-12-03] MEDS: FOLIC ACID 1 MG, MULTIVITAMINS INJ 10 ML, THIAMINE HCL 100 MG in NA CHLORIDE 0.9% 1,000 ML IV SCH (09:41)
[2018-12-03] MEDS: levETIRAcetam 500 MG in NA CHLORIDE 0.9% 100 ML IV SCH ×2 (09:41→22:08)
[2018-12-03] MEDS: LORazepam 2 MG/ML VIAL IV PRN (13:11)
[2018-12-03] MEDS ORDERED: POTASSIUM 25 MEQ EFFERV TAB PO ONE (15:00)
[2018-12-03] MEDS: chlordiazePOXIDE HCl 25 MG CAP PO SCH (17:41)
--- NOTE | 2018-12-03 18:56 | P.PN ---
Subjective Date of Service: 12/03/18 Chief Complaint: delirium tremens Subjective: Tolerating diet, Improving Patient seen and examined at bedside. No family at bedside. Chart reviewed and case discussed with nursing staff. Patient successfully extubated yesterday. Doing well post extubation. Alert awake and oriented, tolerating an oral diet. Continues to have episodes of agitation Hemodynamically stable Review of Systems 10-point ROS is otherwise unremarkable Physical Examination - Vital Signs Temperature: 99 F Blood Pressure: 121/90 Pulse: 107 Respirations: 19 Pulse Ox (%): 100 - Physical Exam General: Alert, In no apparent distress, Oriented x3 HEENT: Atraumatic, PERRLA, EOMI Neck: Supple, JVD not distended Respiratory: Clear to auscultation bilaterally, Normal air movement Cardiovascular: Regular rate/rhythm, Normal S1 S2 Gastrointestinal: Normal bowel sounds, No tenderness Musculoskeletal: No tenderness Integumentary: No rashes Neurological: Normal speech, Normal tone, Normal affect Lymphatics: No axilla or inguinal lymphadenopathy Assessment And Plan - Plan 1. Extubated, doing well, hemodynamically stable. Can transfer to the floor 2. Continue IV Antibiotic 3. Continue alcohol withdrawal precautions/medication 4. pain control 5. GI DVT prophylaxis Disposition: can transfer to the floor. Continue to monitor for DTs and alcohol withdrawal symptoms. Will get physical therapy evaluation
[2018-12-04] MEDS: chlordiazePOXIDE HCl 25 MG CAP PO SCH ×5 (00:05→23:08)
[2018-12-04 06:30] LABS: Absolute Lymphocytes (CBC) 1.4 K/uL (0.7-4.9); Basophils % 1.3 % (0-1.3); Hematocrit 39.7 % (39.6-49.0); Lymphocytes % 21.7 % (15.3-44.8); RBC Red Blood Cell Count 3.99 M/uL (4.33-5.43)
[2018-12-04 06:46] LABS: AST/SGOT 214 U/L (15-37); Albumin 3.4 g/dL (3.4-5.0); Alkaline Phosphatase 218 U/L (45-117); BUN Blood Urea Nitrogen 9 mg/dL (7-18); Bicarbonate 27 mmol/L (21-32); Bilirubin Direct 0.8 mg/dL (0-0.2); Bilirubin Total 1.5 mg/dL (0.2-1.0); Glucose Level 116 mg/dL (74-106); Potassium 3.5 mmol/L (3.5-5.1); Protein, Total 7.3 g/dL (6.4-8.2); Sodium Level 142 mmol/L (136-145)
[2018-12-04 06:48] LABS: ALT/SGPT 398 U/L (12-78)
[2018-12-04] MEDS ORDERED: KCL 20 MEQ/100 mL IVPB 20 MEQ/100 ML BAG IV SCH (08:00)
[2018-12-04] MEDS: levETIRAcetam 500 MG in NA CHLORIDE 0.9% 100 ML IV SCH ×2 (08:54→20:43)
[2018-12-04] MEDS: NICOTINE 21 MG/PAT TD SCH (08:55)
[2018-12-04] MEDS: ENOXAPARIN 40 MG/0.4 ML SQ SCH (08:56)
[2018-12-04 09:35] LABS: Blood Morphology Comment NOTED (NOT SEEN); Platelet Estimate ADEQ; Target Cells 1+
--- NOTE | 2018-12-04 11:48 | P.PN ---
Subjective Date of Service: 12/04/18 Chief Complaint: delirium tremens Subjective: Improving Patient seen and examined at bedside. No family at bedside. Chart reviewed and case discussed with nursing staff. Patient successfully extubated. Doing well post extubation. Alert awake and oriented, tolerating an oral diet. Improved agitation. Working with PT Hemodynamically stable Review of Systems 10-point ROS is otherwise unremarkable Physical Examination - Vital Signs Temperature: 98.8 F Blood Pressure: 142/96 Pulse: 90 Respirations: 17 Pulse Ox (%): 98 - Physical Exam General: Alert, In no apparent distress, Oriented x3 HEENT: Atraumatic, PERRLA, EOMI Neck: Supple, JVD not distended Respiratory: Clear to auscultation bilaterally, Normal air movement Cardiovascular: Regular rate/rhythm, Normal S1 S2 Gastrointestinal: Normal bowel sounds, No tenderness Musculoskeletal: No tenderness Integumentary: No rashes Neurological: Normal speech, Normal tone, Normal affect Lymphatics: No axilla or inguinal lymphadenopathy Assessment And Plan - Plan 1. Extubated, doing well, hemodynamically stable. 2. Working with PT 3. Continue alcohol withdrawal precautions/medication. Discussed Alcohol cessation. Resources will be provided. 4. pain control 5. GI DVT prophylaxis Disposition: Continue to monitor for DTs and alcohol withdrawal symptoms. Anticipate discharge in the next 24 hrs.
--- NOTE | 2018-12-04 12:03 | RAD REPORT ---
EXAM DESCRIPTION: US - Abdomen Exam Complete - 12/04/2018 11:54 am CLINICAL HISTORY: Abdominal pain. Hx ETOH use, evaluate for cirrhosis of liver COMPARISON: No comparisons FINDINGS: Diffuse fatty liver is present. No focal liver lesions or intrahepatic biliary dilatation is seen. The gallbladder demonstrates no gallstones, pericholecystic fluid or gallbladder wall thickening. Co mmon bile duct is normal in caliber measuring 2 mm. Both kidneys are normal in size, shape and echotexture. No hydronephrosis, focal lesion of concern or perinephric fluid. The spleen is normal in size measuring 12 cm. The pancreas and aorta are obscured by bowel gas. The visualized aspects of the IVC are grossly normal. IMPRESSION: Diffuse fatty liver.
[2018-12-04] MEDS ORDERED: DIPHENHYDRAMINE 50 MG/ML VIAL IV ONE (20:59)
[2018-12-05] MEDS: FENTANYL CITR 100 MCG/2 ML IV PRN (00:31)
[2018-12-05] MEDS: chlordiazePOXIDE HCl 25 MG CAP PO SCH (05:44)
[2018-12-05 06:35] LABS: Absolute Lymphocytes (CBC) 1.6 K/uL (0.7-4.9); Basophils % 1.1 % (0-1.3); Hematocrit 38.6 % (39.6-49.0); Lymphocytes % 22.6 % (15.3-44.8); MPV 8.4 fL (7.6-11.3); RBC Red Blood Cell Count 3.87 M/uL (4.33-5.43)
[2018-12-05 06:55] LABS: AST/SGOT 267 U/L (15-37); Albumin 3.4 g/dL (3.4-5.0); Alkaline Phosphatase 204 U/L (45-117); BUN Blood Urea Nitrogen 13 mg/dL (7-18); Bicarbonate 28 mmol/L (21-32); Bilirubin Total 1.2 mg/dL (0.2-1.0); Glucose Level 106 mg/dL (74-106); Potassium 3.6 mmol/L (3.5-5.1); Protein, Total 7.2 g/dL (6.4-8.2); Sodium Level 139 mmol/L (136-145)
[2018-12-05 07:00] LABS: ALT/SGPT 457 U/L (12-78)
[2018-12-05] MEDS ORDERED: DIPHENHYDRAMINE 50 MG/ML VIAL IV ONE (08:00)
[2018-12-05] MEDS: NICOTINE 21 MG/PAT TD SCH (08:05)
[2018-12-05] MEDS: ENOXAPARIN 40 MG/0.4 ML SQ SCH (08:08)
[2018-12-05 08:10] VITALS: O2SAT 95
[2018-12-05] MEDS ORDERED: NYSTATIN PWDR 100000 UNIT/GM TOP SCH (09:00)
[2018-12-05] MEDS ORDERED: POTASSIUM CL SA 10 MEQ TAB PO ONE ×2 (09:00→10:00)
[2018-12-05] MEDS: levETIRAcetam 500 MG in NA CHLORIDE 0.9% 100 ML IV SCH (09:39)
--- NOTE | 2018-12-05 11:30 | P.DS ---
Admission Date: 11/30/18 Discharge Date: 12/05/18 Disposition: ROUTINE DISCHARGE Discharge Condition: GOOD Reason for Admission: delirium tremens Brief History of Present Illness: Patient is a 33-year-old gentleman who comes into the hospital going through [facility]. Patient drinks about a half of 1 L of vodka every day. Patient had gone out of town to [place]. Over the last couple of days he has had no alcohol. He had been feeling poorly during the trip and had a few episodes of nausea and vomiting as well. Patient was seen in the ER and admitted to the hospital for further workup. Patient started becoming more obtunded in the ER. Decision was made to intubate and sedate as patient has high risk of aspiration and fall. patient became very combative while in the emergency room. After giving IV Versed patient finally relaxed and had to be intubated. Patient had a CT of the head which was negative. Patient will be admitted for further evaluation. Hospital Course: Patient was intubated in the ER, transferred to the ICU. Patient was very difficult to stay, was requiring lots of sedation medications. Eventually, patient was extubated in he did well post extubation. He stabilized hemodynamically, was then transferred to the floor. He was working with physical therapy, was unsteady on his feet. But prior to discharge, he continued working with physical therapy and was steady on his feet, able to ambulate without problems. His labs showed elevated LFTs. Abdominal ultrasound was done, which showed diffuse fatty liver disease. His LFTs did trend down prior to discharge. There were elevated likely secondary to alcohol use. He will have continued follow up with outpatient GI. Information was provided to him. His diagnoses and treatment plan was explained to him in detail. He was counseled and educated on alcohol intake and cessation. All questions were answered, he verbalized understanding. He was then discharged home in a safe and stable manner. Vital Signs/Physical Exam: Temp Pulse Resp BP Pulse Ox 98.0 F 75 17 137/86 95 12/05/18 08:00 12/05/18 08:00 12/05/18 08:00 12/05/18 08:00 12/05/18 08:00 General: Alert, In no apparent distress, Oriented x3 HEENT: Atraumatic, PERRLA, EOMI Neck: Supple, JVD not distended Respiratory: Clear to auscultation bilaterally, Normal air movement Cardiovascular: Regular rate/rhythm, Normal S1 S2 Gastrointestinal: Normal bowel sounds, No tenderness Musculoskeletal: No tenderness Integumentary: No rashes Neurological: Normal speech, Normal tone, Normal affect Lymphatics: No axilla or inguinal lymphadenopathy Laboratory Data at Discharge: WBC 7.1 K/uL (4.3-10.9) 12/05/18 06:06 Hgb 13.4 g/dL (13.6-17.9) L 12/05/18 06:06 Hct 38.6 % (39.6-49.0) L 12/05/18 06:06 Plt Count 289 K/uL (152-406) D 12/05/18 06:06 PT 11.6 SECONDS (9.5-12.5) 12/01/18 05:09 INR 0.98 12/01/18 05:09 APTT 30.5 SECONDS (24.3-36.9) 12/01/18 05:09 Sodium 139 mmol/L (136-145) 12/05/18 06:06 Potassium 3.6 mmol/L (3.5-5.1) 12/05/18 06:06 BUN 13 mg/dL (7-18) 12/05/18 06:06 Creatinine 0.74 mg/dL (0.55-1.3) 12/05/18 06:06 Glucose 106 mg/dL (74-106) 12/05/18 06:06 Phosphorus 3.1 mg/dL (2.5-4.9) 12/02/18 04:55 Magnesium 1.9 mg/dL (1.8-2.4) 12/02/18 04:55 Total Bilirubin 1.2 mg/dL (0.2-1.0) H 12/05/18 06:06 AST 267 U/L (15-37) H 12/05/18 06:06 ALT 457 U/L (12-78) H* 12/05/18 06:06 Alkaline Phosphatase 204 U/L (45-117) H 12/05/18 06:06 Troponin I < 0.02 ng/mL (0.0-0.045) 11/30/18 11:02 Lipase 129 U/L (73-393) 11/30/18 11:02 Home Medications: chlordiazePOXIDE HCl [Librium*] 25 mg PO Q6HR #40 cap 12/05/18 New Medications: chlordiazePOXIDE HCl [Librium*] 25 mg PO Q6HR #40 cap Patient Discharge Instructions: Please establish care with a primary care physician. A list has been provided to you. Follow up with GI. Information has been provided to you. Return to the ER for worsening symptoms. Diet: Regular Activity: Ad ruben Followup: Seb Leary MD [ACTIVE - CAN ADMIT] - Reji Rollins MD [ASSOCIATE-ACTIVE - CAN ADMIT] - Time spent managing pt's care (in minutes): 55
[2018-12-05 14:23] VITALS: BP 128/81; TEMP 98.5
== END 2018-12-05 11:58 | disposition home or self-care (01) | DRG 896 ==
LOC: ER 23:29 → ERHOLD 11-30 02:05 → 3RD-ICU 11-30 07:31 → 2ND 12-03 15:00
PROVIDERS: ADMIT Hospitalist; ATTEND Family Medicine
PROC: 0BH17EZ Insertion of Endotracheal Airway into Trachea, Via Natural or Artificial Opening (ICD-10-PCS; principal; 2018-11-30)
PROC: 5A1945Z Respiratory Ventilation, 24-96 Consecutive Hours (ICD-10-PCS; 2018-11-30)
DX: F10.231 Alcohol dependence with withdrawal delirium (principal); J96.00 Acute respiratory failure, unspecified whether with hypoxia or hypercapnia; T51.0X1A Toxic effect of ethanol, accidental (unintentional), initial encounter; K70.0 Alcoholic fatty liver; I10 Essential (primary) hypertension
CPT/HCPCS: 31500; 36415; 51702; 70450; 71045; 76700; 80048; 80053; 80074; 80076; 80307; 80320; 80329; 81003; 82248; 82607; 82746; 83690; 83735; 84100; 84132; 84484; 85025; 85610; 85730; 93005; 94002; 94003; 96372; 96374; 96375; 97112; 97116; 97161; 99291; 99292; J0330; J1170; J1200; J1630; J1650; J1953; J2250; J2704; J3010; J3411; J3486; J7030